=== PATIENT | male | born 1950 | race Caucasian/White ===

== ENCOUNTER 2016-11-13 13:57 | Outpatient (CLI) | payer BC | END 2016-11-13 13:58 | disposition home or self-care (01) | DX: Z00.00 Encounter for general adult medical examination without abnormal findings (principal); E78.2 Mixed hyperlipidemia; Z79.899 Other long term (current) drug therapy; R73.09 Other abnormal glucose; I10 Essential (primary) hypertension ==

== ENCOUNTER 2017-03-05 08:07 | Outpatient (CLI) | payer BC ==
[2017-03-05 14:52] LABS: CHOL/HDL RATIO 3.3 (<5.0); CHOLESTEROL 228 mg/dL; HDL CHOLESTEROL 69 mg/dL; LDL/HDL RATIO 1.8 (<3.6); TRIGLYCERIDES 166 mg/dL; VLDL CHOLESTEROL 33 mg/dL
== END 2017-03-05 08:08 | disposition home or self-care (01) ==
LOC: LAB.R 08:07
PROVIDERS: ATTEND Physician Assistant Medical
DX: E78.2 Mixed hyperlipidemia (principal); Z79.899 Other long term (current) drug therapy
CPT/HCPCS: 80061

== ENCOUNTER 2018-01-07 08:00 | Outpatient (CLI) | payer BC ==
[2018-01-07 12:29] LABS: BASOPHILS # (AUTO) 0.1 10^3/uL (0.0-0.1); BASOPHILS % (AUTO) 1.1 %; EOSINOPHILS # (AUTO) 0.1 10^3/uL (0.0-0.7); EOSINOPHILS % (AUTO) 2.6 %; HGB - HEMOGLOBIN 15.2 g/dL (14.0-18.0); LYMPHOCYTES # (AUTO) 1.4 10^3/uL (1.5-3.5); LYMPHOCYTES % (AUTO) 30.8 %; MEAN CORPUSCULAR HEMOGLOBIN 33.2 pg (27.0-31.0); MEAN CORPUSCULAR VOLUME 95.1 fL (80.0-94.0); MEAN PLATELET VOLUME 9.6 fL (7.4-11.4); MONOCYTES # (AUTO) 0.4 10^3/uL (0.0-1.0); MONOCYTES % (AUTO) 9.8 %; NEUTROPHILS # (AUTO) 2.5 10^3/uL (1.5-6.6); NEUTROPHILS % (AUTO) 55.7 %; PLT - PLATELET COUNT 207 10^3/uL (130-450); RED BLOOD COUNT 4.56 10^6/uL (4.70-6.10); RED CELL DISTRIBUTION WIDTH 12.1 % (12.0-15.0); WHITE BLOOD COUNT 4.5 x10^3/uL (4.8-10.8)
[2018-01-07 12:55] LABS: ALBUMIN 4.7 g/dL (3.2-5.5); ALBUMIN/GLOBULIN RATIO 1.6 (1.0-2.2); ALKALINE PHOSPHATASE 48 IU/L (42-121); ALT ALANINE AMINOTRANSFERASE 35 IU/L (10-60); AST ASPARTATE AMINOTRANSFERASE 34 IU/L (10-42); BILIRUBIN,TOTAL 1.2 mg/dL (0.2-1.0); BUN - BLOOD UREA NITROGEN 16 mg/dL (6-20); CALCIUM 9.4 mg/dL (8.5-10.3); CARBON DIOXIDE - CO2 31 mmol/L (21-32); CHLORIDE 94 mmol/L (101-111); CHOL/HDL RATIO 3.5 (<5.0); CHOLESTEROL 276 mg/dL; CREATININE 0.9 mg/dL (0.6-1.2); GFR - MDRD 85 (>89); GLUCOSE 110 mg/dL (70-100); HDL CHOLESTEROL 78 mg/dL; LDL CHOLESTEROL,CALCULATED 170 mg/dL; LDL/HDL RATIO 2.2 (<3.6); SODIUM 132 mmol/L (135-145); TOTAL PROTEIN 7.6 g/dL (6.7-8.2); VLDL CHOLESTEROL 28 mg/dL
== END 2018-01-07 08:01 | disposition home or self-care (01) ==
LOC: LAB.R 08:00
PROVIDERS: ATTEND Physician Assistant Medical
DX: Z00.00 Encounter for general adult medical examination without abnormal findings (principal); Z12.5 Encounter for screening for malignant neoplasm of prostate; E78.5 Hyperlipidemia, unspecified
CPT/HCPCS: 80053; 80061; 83721; 84153; 85025

== ENCOUNTER 2018-08-19 08:00 | Outpatient (CLI) | payer BC ==
[2018-08-19 13:51] LABS: ALBUMIN 4.6 g/dL (3.2-5.5); ALBUMIN/GLOBULIN RATIO 1.5 (1.0-2.2); ALKALINE PHOSPHATASE 49 IU/L (42-121); ALT ALANINE AMINOTRANSFERASE 27 IU/L (10-60); AST ASPARTATE AMINOTRANSFERASE 29 IU/L (10-42); BUN - BLOOD UREA NITROGEN 11 mg/dL (6-20); CALCIUM 9.5 mg/dL (8.5-10.3); CARBON DIOXIDE - CO2 30 mmol/L (21-32); CHLORIDE 98 mmol/L (101-111); CHOL/HDL RATIO 3.2 (<5.0); CHOLESTEROL 244 mg/dL; CREATININE 0.7 mg/dL (0.6-1.2); GFR - MDRD 113 (>89); GLUCOSE 100 mg/dL (70-100); HDL CHOLESTEROL 77 mg/dL; LDL CHOLESTEROL,CALCULATED 149 mg/dL; LDL/HDL RATIO 1.9 (<3.6); SODIUM 135 mmol/L (135-145); TOTAL PROTEIN 7.6 g/dL (6.7-8.2); VLDL CHOLESTEROL 18 mg/dL
[2018-08-20 12:21] LABS: HEPATITIS C ANTIBODY REACTIVE (NON-REACTIVE)
[2018-08-23 18:36] LABS: HCV RNA QNT <1.18 NOT DETECTED Log IU/mL (NOT DETECTED); HCV RNA QUANT RT PCR <15 NOT DETECTED IU/mL (NOT DETECTED)
== END 2018-08-19 08:01 | disposition home or self-care (01) ==
LOC: LAB.R 08:00
PROVIDERS: ATTEND Physician Assistant Medical
DX: Z13.818 Encounter for screening for other digestive system disorders (principal); Z79.899 Other long term (current) drug therapy; E78.5 Hyperlipidemia, unspecified; R73.9 Hyperglycemia, unspecified
CPT/HCPCS: 80053; 80061; 83721; 86803

== ENCOUNTER 2018-09-14 15:20 | Outpatient (CLI) | payer BC ==
[2018-09-15 13:03] LABS: HEPATITIS C ANTIBODY REACTIVE (NON-REACTIVE)
[2018-09-19 16:06] LABS: HCV RNA QNT <1.18 NOT DETECTED Log IU/mL (NOT DETECTED); HCV RNA QUANT RT PCR <15 NOT DETECTED IU/mL (NOT DETECTED)
== END 2018-09-15 23:59 | disposition home or self-care (01) ==
LOC: LAB.R 15:20
PROVIDERS: ATTEND Physician Assistant Medical
DX: R76.0 Raised antibody titer (principal)
CPT/HCPCS: 86803

== ENCOUNTER 2019-03-10 08:19 | Outpatient (CLI) | payer BC ==
[2019-03-10 09:02] LABS: CHOL/HDL RATIO 3.9 (<5.0); CHOLESTEROL 244 mg/dL; HDL CHOLESTEROL 63 mg/dL; LDL CHOLESTEROL,CALCULATED 164 mg/dL; LDL/HDL RATIO 2.6 (<3.6); VLDL CHOLESTEROL 17 mg/dL
== END 2019-03-10 08:20 | disposition home or self-care (01) ==
LOC: LAB 08:19
PROVIDERS: ATTEND Family Medicine
DX: E78.5 Hyperlipidemia, unspecified (principal)
CPT/HCPCS: 80061; 83721

== ENCOUNTER 2020-12-16 07:00 | Outpatient (CLI) | payer BC ==
--- NOTE | 2020-12-16 15:43 | XRAY Report ---
PROCEDURE: Chest 2 View X-Ray INDICATIONS: ACUTE UPPER RESPIRATORY INFECTION UNSPECIFIED TECHNIQUE: 2 view(s) of the chest. COMPARISON: None. FINDINGS: Surgical changes and devices: Tendon anchors within the right humeral head. Lungs and pleura: No pleural effusions or pneumothorax. Lungs are clear. Mediastinum: Mediastinal contours are normal. Heart size is normal. Bones and chest wall: No suspicious bony abnormalities. Soft tissues appear unremarkable. IMPRESSION: No acute process. Reviewed by: Chrystal Hernandez MD on 12/16/2020 3:42 PM PDT Approved by: Chrystal Hernandez MD on 12/16/2020 3:42 PM PDT Station ID: [id number]
== END 2020-12-16 23:59 | disposition home or self-care (01) ==
LOC: DI.N 07:00
PROVIDERS: ATTEND Nurse Practitioner
DX: J06.9 Acute upper respiratory infection, unspecified (principal); R09.89 Other specified symptoms and signs involving the circulatory and respiratory systems; Z20.822 Contact with and (suspected) exposure to COVID-19

== ENCOUNTER 2020-12-16 07:00 | Outpatient (CLI) | payer BC | END 2020-12-16 23:59 | disposition home or self-care (01) | LOC: LAB.N 07:00 | PROVIDERS: ATTEND Nurse Practitioner | DX: R09.89 Other specified symptoms and signs involving the circulatory and respiratory systems (principal); Z20.822 Contact with and (suspected) exposure to COVID-19 ==

== ENCOUNTER 2021-01-17 10:31 | Outpatient (CLI) | payer BC ==
[2021-01-17 12:07] LABS: BASOPHILS % (AUTO) 0.2 %; EOSINOPHILS % (AUTO) 0.9 %; HCT - HEMATOCRIT 42.2 % (42.0-52.0); LYMPHOCYTES # (AUTO) 1.1 10^3/uL (1.5-3.5); LYMPHOCYTES % (AUTO) 24.2 %; MEAN CORPUSCULAR HEMOGLOBIN 33.2 pg (27.0-31.0); MEAN CORPUSCULAR HGB CONC 35.5 g/dL (32.0-36.0); MEAN CORPUSCULAR VOLUME 93.4 fL (80.0-94.0); MEAN PLATELET VOLUME 11.3 fL (7.4-11.4); MONOCYTES # (AUTO) 0.4 10^3/uL (0.0-1.0); MONOCYTES % (AUTO) 7.7 %; NEUTROPHILS % (AUTO) 66.8 %; PLT - PLATELET COUNT 223 10^3/uL (130-450); RED BLOOD COUNT 4.52 10^6/uL (4.70-6.10); RED CELL DISTRIBUTION WIDTH 11.8 % (12.0-15.0); WHITE BLOOD COUNT 4.6 x10^3/uL (4.8-10.8)
[2021-01-17 12:28] LABS: ALBUMIN 4.5 g/dL (3.2-5.5); ALBUMIN/GLOBULIN RATIO 1.5 (1.0-2.2); ALKALINE PHOSPHATASE 44 IU/L (42-121); ALT ALANINE AMINOTRANSFERASE 36 IU/L (10-60); AST ASPARTATE AMINOTRANSFERASE 37 IU/L (10-42); BILIRUBIN,TOTAL 1.1 mg/dL (0.2-1.0); BUN - BLOOD UREA NITROGEN 26 mg/dL (6-20); CALCIUM 9.3 mg/dL (8.5-10.3); CARBON DIOXIDE - CO2 26 mmol/L (21-32); CHLORIDE 101 mmol/L (101-111); CHOL/HDL RATIO 3.8 (<5.0); CHOLESTEROL 238 mg/dL; CREATININE 0.9 mg/dL (0.6-1.2); GFR - MDRD 84 (>89); GLUCOSE 110 mg/dL (70-100); HDL CHOLESTEROL 62 mg/dL; LDL CHOLESTEROL,CALCULATED 164 mg/dL; LDL/HDL RATIO 2.6 (<3.6); POTASSIUM 4.1 mmol/L (3.5-5.0); SODIUM 138 mmol/L (135-145); TOTAL PROTEIN 7.6 g/dL (6.7-8.2); TRIGLYCERIDES 59 mg/dL; VLDL CHOLESTEROL 12 mg/dL
[2021-01-17 12:32] LABS: CREATINE KINASE MB 6.8 ng/mL (0.6-6.3)
[2021-01-17 12:34] LABS: TROPONIN I HIGH SENSITIVITY 6.2 ng/L (2.3-19.7)
[2021-01-17 12:39] LABS: THYROID STIMULATING HORMONE 0.91 uIU/mL (0.34-5.60)
== END 2021-01-17 23:59 | disposition home or self-care (01) ==
LOC: LAB.N 10:31
PROVIDERS: ATTEND Family Medicine
DX: R07.89 Other chest pain (principal)
CPT/HCPCS: 36415; 80053; 80061; 82553; 83721; 84443; 84484; 85025; 85379

== ENCOUNTER 2021-01-17 18:59 | Emergency (ER) | payer BC ==
--- OUTSIDE RECORDS SUMMARY | 2021-01-17 19:03 | EXTERNAL MEDICAL SUMMARY RPT | Continuity of Care Document ---
:1950 Demographics Phone Unavailable Preferred Language Unknown Marital Status Unknown Denominational Affiliation Unknown Race Unknown Ethnic Group Unknown Author Organization [facility] Address [address] [phone] Phone Care Team Providers Name Role Phone MD Unavailable Unavailable Medications date description facility 20201216 [facility] All 20201216 [facility] All Problems date description facility 20201216 Tobacco use and exposure All 20201216 Tobacco smoking status NHIS All 20201216 Health-related behavior All 20201216 Former smoker All 20201216 Exercise All 20201216 Details of drug misuse behavior All 20201216 COVID19 Testing All 20201216 CHEST 2 VIEW All 20201216 Alcohol use All 20201216 Acute upper respiratory infection, unsp ecified All 20201216 Acute upper respiratory infection All Results test status date ordered by attending specimen dorothy e _2018NCoV_COVID-19_Lab unknown 20201216 unknown unknown unknown _Test_Result_Text_ COVID-19_REFERENCE_TES unknown 20201216 unknown unknown unknown T T unknown 20201216 unknown unknown unknown facility observation status value reference units lab abnor mal line range code notes All _2018NCoV_CO unknown NEGATIVE unknown _6659 unkno wn unknown VID-19_Lab_Te 97 st_Result_Tex t_ All COVID-19_REF unknown NEGATIVE unknown COVID unkno wn unknown ERENCE_TEST 19.REF All T unknown NEGATIVE unknown COVID unknown un known -19 Vital Signs date measurement value source 20201216 weight_standard 148 lb 20201216 weight_metric 67.13 kg 20201216 temperature_standard 97.5 F 20201216 temperature_metric 36.39 C 20201216 respiration_rate 12 /min 20201216 height_standard 67.5 in 20201216 height_metric 171.45 cm 20201216 heart_rate 86 /min 20201216 BP_systolic 139 mm[Hg] 20201216 BP_diastolic 81 mm[Hg] 20201216 BMI 22.92 kg/m2
--- OUTSIDE RECORDS SUMMARY | 2021-01-17 19:25 | EXTERNAL MEDICAL SUMMARY RPT | Continuity of Care Document ---
:1950 Demographics Phone Unavailable Preferred Language Unknown Marital Status Unknown Restorationism Affiliation Unknown Race Unknown Ethnic Group Unknown Author Organization [place] Address [address] [phone] Phone Care Team Providers Name Role Phone Marty GARCIA, Unavailable Unavailable Medications date description facility 20201216 [...] 20201216 unknown unknown unknown T T unknown [id number] unknown unknown unknown facility observation status value [...]
[2021-01-17 19:32] LABS: BASOPHILS % (AUTO) 0.9 %; EOSINOPHILS # (AUTO) 0.1 10^3/uL (0.0-0.7); EOSINOPHILS % (AUTO) 2.5 %; HCT - HEMATOCRIT 40.7 % (42.0-52.0); HGB - HEMOGLOBIN 14.4 g/dL (14.0-18.0); LYMPHOCYTES # (AUTO) 1.8 10^3/uL (1.5-3.5); LYMPHOCYTES % (AUTO) 39.3 %; MEAN CORPUSCULAR HGB CONC 35.4 g/dL (32.0-36.0); MEAN CORPUSCULAR VOLUME 93.1 fL (80.0-94.0); MEAN PLATELET VOLUME 10.4 fL (7.4-11.4); MONOCYTES # (AUTO) 0.3 10^3/uL (0.0-1.0); MONOCYTES % (AUTO) 7.4 %; NEUTROPHILS # (AUTO) 2.2 10^3/uL (1.5-6.6); NEUTROPHILS % (AUTO) 49.9 %; PLT - PLATELET COUNT 208 10^3/uL (130-450); RED BLOOD COUNT 4.37 10^6/uL (4.70-6.10); RED CELL DISTRIBUTION WIDTH 11.7 % (12.0-15.0); WHITE BLOOD COUNT 4.5 x10^3/uL (4.8-10.8)
[2021-01-17 19:43] LABS: ALBUMIN 4.3 g/dL (3.2-5.5); ALBUMIN/GLOBULIN RATIO 1.6 (1.0-2.2); BILIRUBIN,TOTAL 0.5 mg/dL (0.2-1.0); CREATININE 0.8 mg/dL (0.6-1.2); POTASSIUM 4.1 mmol/L (3.5-5.0)
[2021-01-17 19:48] LABS: CREATINE KINASE MB 6.6 ng/mL (0.6-6.3)
[2021-01-17 19:50] LABS: TROPONIN I HIGH SENSITIVITY 5.6 ng/L (2.3-19.7)
--- NOTE | 2021-01-17 20:25 | ED Physician Documentation ---
PD HPI CHEST PAIN - Stated complaint Stated Complaint: CP,ABNORMAL LABS - Chief complaint Chief Complaint: Cardiac - History obtained from History obtained from: Patient - History of Present Illness Timing - onset: How many months ago (1) Timing - onset during: Light activity Timing - duration: Months (1) Timing - details: Gradual onset, Still present Quality: Sharp, Pain Location: Substernal, Left chest Radiation: Left upper extremity Worsened by: Inspiration, Movement, Palpation, Position Associated symptoms: Shortness of air, Palpitations. No: Diaphoresis, Nausea, Vomiting, Feeling faint / dizzy, General Weakness, Cough Similar symptoms before: Has not had sx before Recently seen: Clinic - Additional information Additional information: 70-year-old male has developed symptoms of palpitations which he is having as often as once per minute he describes it as a sensation of his heart skipping a beat. He has gone in to see his primary care doctor and had blood work done this morning and he was asked to come back to the emergency department with an elevated CPK isoenzyme. His troponin drawn simultaneously was negative. 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 He does not remember any specific event or injury but does state that he has been moving some pallets of water which were quite heavy recently. Review of Systems Constitutional: denies: Fever Eyes: denies: Decreased vision Ears: denies: Ear pain Nose: denies: Congestion Throat: denies: Sore throat Cardiac: reports: Palpitations. denies: Chest pain / pressure Respiratory: denies: Dyspnea, Cough GI: denies: Abdominal Pain, Nausea, Vomiting : denies: Dysuria, Frequency Musculoskeletal: denies: Neck pain, Back pain, Extremity pain Neurologic: denies: Generalized weakness, Focal weakness, Numbness PD PAST MEDICAL HISTORY - Allergies Allergies/Adverse Reactions: Allergies Allergy/AdvReac Type Severity Reaction Status Date / Time [id number]-Jif-Cbp Reductase Allergy Itching Verified 01/17/21 19:06 Inhibitor - Social History Does the pt smoke?: No Smoking Status: Never smoker PD ED PE NORMAL - Vitals Vital signs reviewed: Yes (Hypertensive) - General General: Alert and oriented X 3, No acute distress, Well developed/nourished - HEENT HEENT: Atraumatic, PERRL, EOMI - Neck Neck: Supple, no meningeal sign, No bony TTP - Cardiac Cardiac: RRR, No murmur - Respiratory Respiratory: No respiratory distress, Clear bilaterally - Abdomen Abdomen: Normal bowel sounds, Soft, Non tender, Non distended, No organomegaly - Back Back: No CVA TTP, No spinal TTP - Derm Derm: Normal color, Warm and dry, No rash - Extremities Extremities: No deformity, No edema - Neuro Neuro: Alert and oriented X 3, 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, No motor deficit, No sensory deficit, Normal speech Eye Opening: Spontaneous Motor: Obeys Commands Verbal: Oriented GCS Score: 15 - Psych Psych: Normal mood, Normal affect Results - Vitals Vitals: Vital Signs - 24 hr 01/17/21 01/17/21 19:06 21:25 Temperature 36.5 C 36.8 C Heart Rate 77 68 Respiratory 16 12 Rate Blood Pressure 146/71 H 141/81 H O2 Saturation 98 97 Oxygen O2 Source Room air - EKG (time done) 1904 Rate: Rate (enter#) (72) Rhythm: LAE QRS: LVH Compare to prior EKG: Old EKG unavailable Computer interpretation: Agree with computer - Labs Labs: Laboratory Tests 01/17/21 01/17/21 01/17/21 19:23 19:23 19:23 WBC 4.5 L RBC 4.37 L Hgb 14.4 Hct 40.7 L MCV 93.1 MCH 33.0 H MCHC 35.4 RDW 11.7 L Plt Count 208 MPV 10.4 Neut # (Auto) 2.2 Lymph # (Auto) 1.8 Whitfield # (Auto) 0.3 Eos # (Auto) 0.1 Baso # (Auto) 0.0 Absolute Nucleated RBC 0.00 Nucleated RBC % 0.0 Sodium 138 Potassium 4.1 Chloride 99 L Carbon Dioxide 29 Anion Gap 10.0 BUN 23 H Creatinine 0.8 Estimated GFR (MDRD) 96 Glucose 151 H Calcium 9.0 Total Bilirubin 0.5 AST 32 ALT 33 Alkaline Phosphatase 44 Total Creatine Kinase 383 H CK-MB (CK-2) 6.6 H Troponin I High Sens 5.6 Total Protein 7.0 Albumin 4.3 Globulin 2.7 Albumin/Globulin Ratio 1.6 Lipase 45 - Rads (name of study) chest Radiology: Prelim report reviewed (Impression: No acute process.), EMP read indepedently, See rad report PD MEDICAL DECISION MAKING - ED course Complexity details: reviewed old records, reviewed results, re-evaluated patient, considered differential, d/w patient ED course: Previous well 70-year-old male was asked come to the emergency part of today with a note elevated CPK-MB. He does do freight for [employer] and his CPK was mildly elevated today and his percentage of CK isoenzyme was thusly not positive. His level at 6.6 with the upper end of normal at 6.3. The level of rhabdomyolysis with this is minimal. He does acknowledge stress, poor sleep and excessive work and experiences palpitations infrequently but he had never noticed them before. We hooked the patient up to the monitor and did not find any ectopy. The patient feels well and requests to go home. Departure - Departure Disposition: 01 Home, Self Care Clinical Impression: Palpitations Condition: Stable Instructions: ED Palpitations Follow-Up: Marty Etienne MD [Primary Care Provider] - Discharge Date/Time: 01/17/21 21:29
--- NOTE | 2021-01-17 21:08 | XRAY Report ---
PROCEDURE: Chest 1 View X-Ray INDICATIONS: chest pain TECHNIQUE: One view of the chest was acquired. COMPARISON: 12/16/2020 FINDINGS: Surgical changes and devices: None. Lungs and pleura: No pleural effusions or pneumothorax. Lungs are clear. Mediastinum: Mediastinal contours appear normal. Heart size is normal. Bones and chest wall: No suspicious bony lesions. Overlying soft tissues appear unremarkable. IMPRESSION: No acute process. Reviewed by: Chrystal Hernandez MD on 01/17/2021 9:06 PM PDT Approved by: Chrystal Hernandez MD on 01/17/2021 9:06 PM PDT Station ID: [id number]
[2021-01-17 21:26] VITALS: BP 141/81
== END 2021-01-17 21:29 | disposition home or self-care (01) ==
LOC: ED 18:59
DX: R00.2 Palpitations (principal); R07.89 Other chest pain
CPT/HCPCS: 36415; 80053; 80061; 82550; 82553; 83690; 83721; 84443; 84484; 85025; 85379; 93005; 99284

== ENCOUNTER 2022-09-24 08:04 | Outpatient (CLI) | payer BC ==
[2022-09-24 12:10] LABS: BASOPHILS % (AUTO) 0.5 %; EOSINOPHILS # (AUTO) 0.2 10^3/uL (0.0-0.7); EOSINOPHILS % (AUTO) 3.9 %; HCT - HEMATOCRIT 45.8 % (42.0-52.0); HGB - HEMOGLOBIN 15.1 g/dL (14.0-18.0); LYMPHOCYTES # (AUTO) 1.7 10^3/uL (1.5-3.5); LYMPHOCYTES % (AUTO) 29.5 %; MEAN CORPUSCULAR HEMOGLOBIN 31.9 pg (27.0-31.0); MEAN CORPUSCULAR VOLUME 96.8 fL (80.0-94.0); MEAN PLATELET VOLUME 11.9 fL (7.4-11.4); MONOCYTES # (AUTO) 0.5 10^3/uL (0.0-1.0); MONOCYTES % (AUTO) 8.2 %; NEUTROPHILS # (AUTO) 3.3 10^3/uL (1.5-6.6); NEUTROPHILS % (AUTO) 57.9 %; PLT - PLATELET COUNT 207 10^3/uL (130-450); RED BLOOD COUNT 4.73 10^6/uL (4.70-6.10); WHITE BLOOD COUNT 5.7 x10^3/uL (4.8-10.8)
[2022-09-24 12:16] LABS: ESTIMATED AVERAGE GLUCOSE 111 mg/dL (70-100); HEMOGLOBIN A1c% 5.5 % (4.27-6.07)
[2022-09-24 12:26] LABS: THYROID STIMULATING HORMONE 1.79 uIU/mL (0.34-5.60)
[2022-09-24 12:28] LABS: ALBUMIN 4.1 g/dL (3.2-5.5); ALBUMIN/GLOBULIN RATIO 1.3 (1.0-2.2); ALKALINE PHOSPHATASE 44 IU/L (42-121); ALT ALANINE AMINOTRANSFERASE 45 IU/L (10-60); AST ASPARTATE AMINOTRANSFERASE 30 IU/L (10-42); BILIRUBIN,TOTAL 0.8 mg/dL (0.2-1.0); BUN - BLOOD UREA NITROGEN 23 mg/dL (6-20); CALCIUM 9.5 mg/dL (8.5-10.3); CARBON DIOXIDE - CO2 29 mmol/L (21-32); CHLORIDE 103 mmol/L (101-111); CHOL/HDL RATIO 5.2 (<5.0); CHOLESTEROL 258 mg/dL; CREATININE 0.9 mg/dL (0.6-1.2); GFR - MDRD 84 (>89); GLUCOSE 101 mg/dL (70-100); HDL CHOLESTEROL 50 mg/dL; LDL CHOLESTEROL,CALCULATED 184 mg/dL; LDL/HDL RATIO 3.7 (<3.6); POTASSIUM 4.5 mmol/L (3.5-5.0); SODIUM 139 mmol/L (135-145); TOTAL PROTEIN 7.3 g/dL (6.7-8.2); TRIGLYCERIDES 122 mg/dL; VLDL CHOLESTEROL 24 mg/dL
== END 2022-09-24 08:05 | disposition home or self-care (01) ==
LOC: LAB.N 08:04
PROVIDERS: ATTEND Family Medicine
DX: I10 Essential (primary) hypertension (principal); E78.5 Hyperlipidemia, unspecified; R73.9 Hyperglycemia, unspecified; Z12.5 Encounter for screening for malignant neoplasm of prostate
CPT/HCPCS: 36415; 80053; 80061; 83036; 83721; 84153; 84443; 85025

== ENCOUNTER 2023-07-02 08:13 | Outpatient (CLI) | payer BC ==
[2023-07-02 12:02] LABS: EOSINOPHILS # (AUTO) 0.1 10^3/uL (0.0-0.7); EOSINOPHILS % (AUTO) 3.1 %; HCT - HEMATOCRIT 42.2 % (42.0-52.0); HGB - HEMOGLOBIN 14.4 g/dL (14.0-18.0); LYMPHOCYTES # (AUTO) 1.7 10^3/uL (1.5-3.5); LYMPHOCYTES % (AUTO) 39.9 %; MEAN CORPUSCULAR HEMOGLOBIN 31.7 pg (27.0-31.0); MEAN CORPUSCULAR HGB CONC 34.1 g/dL (32.0-36.0); MEAN PLATELET VOLUME 11.8 fL (7.4-11.4); MONOCYTES # (AUTO) 0.3 10^3/uL (0.0-1.0); MONOCYTES % (AUTO) 7.5 %; NEUTROPHILS % (AUTO) 48.5 %; PLT - PLATELET COUNT 215 10^3/uL (130-450); RED BLOOD COUNT 4.54 10^6/uL (4.70-6.10); RED CELL DISTRIBUTION WIDTH 11.9 % (12.0-15.0); WHITE BLOOD COUNT 4.2 x10^3/uL (4.8-10.8)
[2023-07-02 12:32] LABS: THYROID STIMULATING HORMONE 1.95 uIU/mL (0.34-5.60)
[2023-07-02 12:36] LABS: ALBUMIN 4.6 g/dL (3.2-5.5); ALBUMIN/GLOBULIN RATIO 2.1 (1.0-2.2); ALKALINE PHOSPHATASE 55 IU/L (42-121); ALT ALANINE AMINOTRANSFERASE 37 IU/L (10-60); AST ASPARTATE AMINOTRANSFERASE 29 IU/L (10-42); BILIRUBIN,TOTAL 0.7 mg/dL (0.2-1.0); BUN - BLOOD UREA NITROGEN 21 mg/dL (6-20); CALCIUM 9.7 mg/dL (8.5-10.3); CARBON DIOXIDE - CO2 29 mmol/L (21-32); CHLORIDE 102 mmol/L (101-111); CHOL/HDL RATIO 6.4 (<5.0); CHOLESTEROL 257 mg/dL; CREATININE 0.9 mg/dL (0.6-1.3); GFR - MDRD 83 (>89); GLUCOSE 91 mg/dL (74-104); HDL CHOLESTEROL 40 mg/dL; LDL CHOLESTEROL,CALCULATED 185 mg/dL; LDL/HDL RATIO 4.6 (<3.6); POTASSIUM 4.6 mmol/L (3.5-4.5); SODIUM 138 mmol/L (135-145); TOTAL PROTEIN 6.8 g/dL (6.4-8.9); TRIGLYCERIDES 159 mg/dL (48-352); VLDL CHOLESTEROL 32 mg/dL
== END 2023-07-02 08:14 | disposition home or self-care (01) ==
LOC: LAB.N 08:13
PROVIDERS: ATTEND Family Medicine
DX: I10 Essential (primary) hypertension (principal); E78.5 Hyperlipidemia, unspecified; Z12.5 Encounter for screening for malignant neoplasm of prostate; Z13.29 Encounter for screening for other suspected endocrine disorder
CPT/HCPCS: 36415; 80053; 80061; 83721; 84153; 84443; 85025

== ENCOUNTER 2023-07-30 11:22 | Outpatient (CLI) | payer BC ==
--- NOTE | 2023-07-30 15:40 | XRAY Report ---
PROCEDURE: Cervical Spine Comp w/Flex/Ext INDICATIONS: CERVICALGIA TECHNIQUE: 7 views of the cervical spine were acquired. COMPARISON: None. FINDINGS: Bones: No fractures or dislocations to the C7-T1 level. No suspicious bony lesions. There is mildl y decreased range of motion between flexion and extension, with preserved normal bony alignment. Ther e is trace retrolisthesis of C3 on C4 and trace anterolisthesis of C4 on C5. Moderate disc space narr owing is present at C5-6. Uncovertebral hypertrophy is present. Multilevel bilateral foraminal narrow ing moderate to severe most significant from C4-5 through C6-7. Soft tissues: Prevertebral soft tissues are normal in thickness. IMPRESSION: Multilevel degenerative changes as above. Reviewed by: Betsy Appiah MD on 07/30/2023 3:39 PM PST Approved by: Betsy Appiah MD on 07/30/2023 3:39 PM [facility] Station ID: [id number]
== END 2023-07-30 11:23 | disposition home or self-care (01) ==
LOC: DI 11:22
PROVIDERS: ATTEND Family Medicine
DX: M43.12 Spondylolisthesis, cervical region (principal); M47.812 Spondylosis without myelopathy or radiculopathy, cervical region; M48.02 Spinal stenosis, cervical region